=== PATIENT | male | born 1975 | race Hispanic/Latino ===

== ENCOUNTER 2018-05-05 07:05 | Day surgery (SDC) | payer OTHER ==
[2018-05-03 09:39] VITALS: BMI 23.6
[2018-05-05] MEDS ORDERED: Propofol 10 mg/ml Inj (20 ML) ONE (09:58)
[2018-05-05] MEDS ORDERED: Midazolam 2 MG/2 ML VIAL ONE (09:58)
[2018-05-05] MEDS ORDERED: ceFAZolin IV 1 gm in Dextrose 1 GM/50 ML BAG IVPB SCH (10:15)
[2018-05-05] MEDS ORDERED: Neostigmine Methylsulfate 3mg/3ml Syringe IV ONE (11:55)
[2018-05-05] MEDS ORDERED: HYDROmorphone 0.5 mg/0.5 ml ISec ONE (12:20)
[2018-05-05] MEDS ORDERED: HYDROmorphone 0.5 mg/0.5 ml ISec IVP PRN ×2 (12:21→12:23)
[2018-05-05] MEDS ORDERED: Lactated Ringer's 1,000 ML IV SCH (12:30)
[2018-05-05] MEDS ORDERED: Bupivacaine 0.25% 20 ML INJ IJ ONE (12:38)
--- NOTE | 2018-05-05 12:54 | PCM.ANESB7 ---
Adductor Canal Block - Adductor Canal Block Date of Procedure: 05/05/18 Anesthiologist: Morgan Pre-Procedure Diagnosis: Left meniscal tear Post-Procedure Diagnosis: Left meniscal tear Procedure Performed: Adductor Canal Block Left - Procedure Adductor Canal Block: The procedure was explained to the patient that it is for the post-operative pain management. Consent was obtained after a thorough discussion with the patient regarding the benefits and possible complications of local anesthetic adductor canal block of the femoral nerve. Standard monitors, as defined by the ASA, were applied to the patient. Time-out was held with the circulating nurse to confirm the appropriate block. After applying supplemental oxygen and administering IV Sedation as needed, the patient was placed in supine position with and the operative leg was flexed slightly at the knee and externally rotated as needed, and was kept anatomically stable. The mid-thigh of the _left__ lower extremity was exposed. The ultrasound transducer was then applied transversely along the medial aspect, about midway down the thigh and the femoral artery and vein were identified in appropriate relation with the s artorius muscle. At this time, the femoral nerve was visualized lateral to the femoral artery within the canal. After thorough identification, this area area was prepped with Chloroprep solution three times and 1 % Lidocaine was injected subcutaneously for topical anesthesia. At this point, a #22 gauge Stimuplex 4-inch needle was inserted in-plane in a la [id number] orientation, and advanced toward the femoral nerve. Advancement was performed carefully under direct ultrasound visualization. After negative aspiration, _20_cc of __0.25_% ___bupivicaine.. Under ultrasound guidance the local anesthetics were observed spreading around the femoral nerve. The needle was removed intact and sterile dressing was applied. The patient had stable vital signs, was conscious and in no apparent distress. The patient tolerated the femoral nerve block well with stable vital signs and was prepared for subsequent surgery
[2018-05-05 13:49] VITALS: RESP 10; TEMP 97.6; O2SAT 98
[2018-05-05 14:05] VITALS: PULSE 69
[2018-05-05 15:13] VITALS: BP 136/79
--- NOTE | 2018-05-17 07:03 | PCM.SURG1 ---
Surgeon's Initial Post Op Note - Surgeon's Notes Surgeon: Africa Corbin MD [place] Operator: Abundio Woodruff PA-C Type of Anesthesia: General Endo, [facility] Pre-Operative Diagnosis: L knee: #1 medial meniscal tear. #2 partial ACL tear. #3 lateral meniscal tear. #4 MFC chondromalacia Operative Findings: L knee: #1 complex medial meniscal tear (2 zones of injury= posterior horn oblique large tear at the white-red zone, repairable, complex free edge white white zone tear posterior horn, not repairable). #2 complex lateral meniscal tear (3 zones of injury= posterior horn - root junction complex tear, not repairable/ peripheral menisco-capsular seperation, hypermobility, red-red zone injury, repairable, free edge complex white-white zone tear at mid- body, not repairable). #3 high grade partial ACL tear with grade 3 instability (essentially, not functional ACL, but good remnant fibers ammanable to primary ACL repair). 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 #5 chondromalacia MFC (small full thickness grade 4 injury at anterior aspect, [id number]). #6 significant 3 compartment synovitis. #7 symptomatic medial plica band. #8 hypertorphic, inflamed anterior fat pad causing anterior impingement Post-Operative Diagnosis: L knee: #1 complex medial meniscal tear (2 zones of injury= posterior horn oblique large tear at the white-red zone, repairable, complex free edge white white zone tear posterior horn, not repairable). #2 complex lateral meniscal tear (3 zones of injury= posterior horn - root junction complex tear, not repairable/ peripheral menisco-capsular seperation, hypermobility, red-red zone injury, repairable, free edge complex white-white zone tear at mid-body, not repairable). #3 high grade partial ACL tear with grade 3 instability (essentially, not functional ACL, but good remnant fibers ammanable to primary ACL repair). 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 #5 chondromalacia MFC (small full thickness grade 4 injury at anterior aspect, [id number]). #6 significant 3 compartment synovitis. #7 symptomatic medial plica band. #8 hypertorphic, inflamed anterior fat pad causing anterior impingement Operation Performed: L knee Arthroscopic: #1 all inside medial meniscal repair. #2 partial lateral menisectomy with stabilization posterior horn. #3 evaluation of high grade partial ACL tear (possible future primary ACL repair vs recon). #4 chondroplasty patella. #5 chondroplasty and microfracture MFC chondral injury. #6 extensive synovectomy all 3 compartments. #7 resection and debridement symptomatic medial plica band. #8 resection and debridement anterior inflamed hypertorphic fat pad. #9 intra-articular PRP injection Specimen/Specimens Removed: specimen= none. complications= none. tourniquet time= 0min. Implants= [employer] Sequent all inside meniscal repair system, 24 implants used in total, 6 kits, 6 implants for LM stabilization, 18 implants for the MM repair Estimated Blood Loss: EBL {In ML}: 3 Blood Products Given: N/A Drains Used: No Drains Post-Op Condition: Good Date of Surgery/Procedure: 05/05/18 Time of Surgery/Procedure: 10:00
--- NOTE | 2018-05-18 05:08 | OP ---
PROCEDURE DATE: 05/05/2018 PREOPERATIVE DIAGNOSES: Left knee: 1. Medial meniscal tear. 2. Partial anterior cruciate ligament tear. 3. Lateral meniscal tear. 4. Medial femoral condyle, possible chondral injury. POSTOPERATIVE DIAGNOSES: Left knee: 1. Complex medial meniscal tear (two zones of injury = posterior horn oblique large tear at the white-red zone, partially repairable/complex free edge white-white zone tear, midbody to posterior horn not repairable). 2. Complex lateral meniscal tear (three zones of injury = posterior horn-root junction complex tear, not repairable/peripheral meniscal capsular separation, hypermobility, red-red zone injury repairable/free edge complex white-white zone tear at midbody, not repairable). 3. High-grade partial anterior cruciate ligament tear with grade III instability (essentially, nonfunctional anterior cruciate ligament with good remnant fibers amendable primary anterior cruciate ligament repair in the future). 4. Chondromalacia grade II patella, lateral facet. 5. Chondromalacia, medial femoral condyle, grade IV (small full-thickness grade IV injury at the anterior aspect of the medial femoral condyle, measuring 3 mm x 3 mm). 6. Significant three-compartment synovitis. 7. Symptomatic medial plica band. 8. Hypertrophic, inflamed anterior fat pad causing anterior impingement. PROCEDURES: Left knee arthroscopic: 1. All-inside medial meniscal repair. 2. Partial lateral meniscectomy with stabilization of posterior horn. 3. Evaluation of high-grade partial anterior cruciate ligament tear (indicated for possible future primary anterior cruciate ligament repair versus reconstruction if the patient is willing). 4. Chondroplasty of patella. 5. Chondroplasty and microfracture of medial femoral condyle chondral injury. 6. Extensive synovectomy of all three compartments. 7. Resection and debridement of symptomatic medial plica band. 8. Resection and debridement of anterior and inflamed hypertrophic fat pad. 9. Intra-articular platelet-rich plasma injection. SURGEON: Africa Corbin MD BIODIESEL PROCESSING TECHNICIAN: Abundio Woodruff PA-C JUSTIFICATION FOR BIODIESEL PROCESSING TECHNICIAN: Abundio Woodruff is a certified physician assistant plant manager whose skilled surgical assistance was an absolute necessity for successful completion of the procedure as he provided skilled surgical assistance with positioning of the patient, positioning of extremity, management of surgical field, facilitating complex all-inside medial meniscal repair, facilitating microfracture of medial femoral condyle, facilitating partial lateral meniscectomy and extensive synovectomy, wound closure, fitting and placement of postoperative hinged knee brace. Solaus Ranjan was present for the entire case and was an absolute necessity for successful completion of this procedure especially with the complex medial meniscal tear repair that was performed. ANESTHESIA: General endotracheal anesthesia with a postop regional nerve block placed by anesthesia staff in PACU. COMPLICATIONS: None. SPECIMENS: None. TOURNIQUET TIME: Zero minutes. ESTIMATED BLOOD LOSS: 3 mL. DRAINS: None. DISPOSITION: The patient was extubated and transferred to the PACU in stable condition and tolerated the procedure well. IMPLANTS: [facility] all-inside Sequent meniscal repair system, 24 implants used in total/6 kits, 6 implants were used for the lateral meniscus stabilization and 18 implants were used for the all-inside medial meniscal repair. INDICATIONS FOR SURGERY: The patient is a 42-year-old male with no significant past medical history who presented to the office for the first time under my care on 06/06/2017 with left knee pain, progressively worsening over the past five years. 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 His problems began approximately fiver years ago when he ran a half marathon and at the end of the marathon, he started to develop left knee medial and anterior pain that has since then progressively worsened. He admitted to clicking and catching and multiple episodes of giving way with subjective instability. Under my care, he has undergone conservative treatment with bracing, multiple rounds of physical therapy, anti-inflammatory medication in the form of Mobic, anti-inflammatory cream, one cortisone mixture injection under my care in the office on 06/20/2017. The cortisone mixture injection resulted a near-complete resolution of pain that lasted approximately two months. He has been very compliant with all of his conservative treatment recommendations. He underwent an MRI of the left knee done at [facility] on 06/09/2017 which was read as: 1. Complex tear of posterior horn and body of medial meniscus. 2. Grade I sprain of ACL and MCL. 3. Mid patellar chondromalacia, no osteochondral defect. 4. Small joint effusion. After failing conservative management for almost one year, a repeat left knee MRI was done also at [facility] on 03/06/2018 which was read as: 1. Re-demonstration of complex tear, posterior horn and body medial meniscus. 2. Persistent grade I sprain pattern in the ACL and MCL but slightly diminished surrounding edema. 3. Mild patellar chondromalacia again seen, no discrete osteochondral defect. 4. Small joint effusion and small Ortiz cyst. On my review of the first MRI and the repeat MRI, the medial meniscus exhibited significant large oblique tear at the posterior horn with what appeared to be good quality tissue, possibly amendable to repair. The ACL exhibited significant signal change, and my opinion was a high-grade partial tear on both MRIs, worse on the repeat MRI. The lateral meniscus also exhibited a peripheral signal on the repeat MRI. The medial femoral condyle cartilage exhibited a small area of signal change of its anterior aspect as well near the lateral aspect of the medial femoral condyle. On physical exam, he had positive medial meniscal tear findings with positive Beth and medial joint line pain as well as very mild lateral Beth with possible clinical lateral meniscal tear as well. ACL did exhibit significant instability on serial examinations in the office with 2+ anterior joint neutral and internal rotation with a soft endpoint and 3+ anterior drawer waxer external rotation with an endpoint, 2+ Alex with an endpoint and 1 to 2+ pivot shift. MCL appeared stable. After having multiple discussions about treatment options and going over his ACL instability exam and subjective complaints of instability on multiple occasions, he was indicated for surgery which was to include left knee arthroscopic medial meniscal repair versus partial medial meniscectomy, possible partial lateral meniscectomy versus lateral meniscus repair, possible chondroplasty and microfracture of clinically indicated, evaluation of the partial ACL tear under anesthesia and arthroscopically, extensive synovectomy and all related indicated arthroscopic procedures. We discussed at length the benefit of undergoing a primary ACL repair in the same setting if the tissue is of good quality and indeed there was significant ACL instability under anesthesia and arthroscopically it appeared to be avulsed of the femur or attenuated fibers that were nonfunctional. The patient was adamant that he did not want the ACL repair performed during this session and that he would like to review the arthroscopic pictures and video from the surgery and determine if he would like to proceed with ACL repair or reconstruction in the future after he recovers from the surgery. My instructions for the patient were very clear that I was to evaluate the partial ACL tear and show him my findings, and we would discuss the indicated treatment plan moving forward. The risks, benefits, and alternatives to the procedure were discussed at length with the patient with the risks include, but not limited to infection, neurovascular damage, need for further surgery, failure of meniscus repair, development of chronic pain and disability, chondrolysis, development of blood clots including DVT and PE, stiffness, inability to return to preinjury and presurgery level of activity and sports, anesthesia reactions including . After answering all of his questions, the patient stated that he understood the risks and wished to proceed with surgery. He watched surgical animation videos and diagnoses. The animation videos on multiple office visits and stated that he had a good understanding of the procedure as well as the multiple diagnoses. I reviewed at length with him the postop rehabilitation protocol and stated he had a good understanding of the need for compliance with the postop rehab protocol in order to maximize the chance of having successful outcome after surgery. He was referred to his primary care physician, Dr. Zan White, for preoperative medical evaluation and preadmission testing, and the procedure was scheduled at [facility] on 05/05/2018. PROCEDURE IN DETAIL: The patient was identified in the preoperative holding area, and the left knee was marked for surgery. Once again as described above, the risks, benefits, and alternatives of the procedure were discussed at length with the patient, and informed consent was obtained. After a brief discussion with anesthesia staff, the patient was taken to the operating room and placed on a well-padded operating room table with all bony prominences and superficial neurovascular structures well padded. An initial time-out was done with the surgeon, anesthesia staff, OR staff; all in agreement with the patient, procedure being done and the extremity to be operated on. General anesthesia was administered without difficulty or complications. EXAMINATION UNDER ANESTHESIA: Left knee with no swelling, no warmth, no erythema, skin intact, full range of motion compared to contralateral knee. There was significant ACL instability under anesthesia with 3+ anterior drawer and internal rotation, external rotation, neutral with a very soft endpoint, 3+ Alex with no endpoint, 3+ pivot shift, negative reverse Alex, negative posterior drawer, negative reverse pivot shift, negative opening to medial or lateral joint line at 0 or 30 degrees varus or valgus stress, negative posterolateral corner drawer test, negative dial test, negative recurvatum. Patella with no evidence of instability and normal tracking with no crepitance. There was a reproducible click at the inferior medial aspect of the patella engaging at 30 degrees flexion representing a symptomatic medial plica band most likely. CONTINUATION OF PROCEDURE: Tourniquet was placed high in left thigh, but never inflated. Left lower extremity was prepped and draped in a standard sterile fashion. A final time-out was done with the surgeon, anesthesia staff, OR staff, all in agreement with the patient, procedure being done and the extremity to be operated on. Normal saline 50 mL was used to insufflate the left knee joint. Anterolateral portal was created with stab incision through the skin down to subcutaneous tissue down to the level of the capsule. Blunt arthroscopic trocar and cannula were inserted into the suprapatellar pouch, and insufflation with arthroscopic fluid was begun. With the use of spinal needle localization after the camera was inserted, we were able to identify optimal entry point for the anteromedial portal, and the anteromedial portal was created with stab incision through skin down to subcutaneous tissue down to the level of the capsule. With the use of an arthroscopic probe, a diagnostic arthroscopy was then carried out. DIAGNOSTIC ARTHROSCOPY: Attention was first turned towards the suprapatellar pouch where there was no evidence of adhesions or loose bodies. Attention was then turned towards the patellofemoral joint where the lateral patella exhibited grade II chondromalacia throughout with no full-thickness defect seen and just some fibrillation and unstable cartilage fragments. Trochlea was intact. Patella was well seated within the trochlea with no evidence of instability or subluxation. Extending from the inferomedial aspect of the patella to the medial retinaculum was a thickened hypertrophic symptomatic medial plica band causing friction with the medial femoral condyle, appearing as a symptomatic medial plica band. Attention was then turned towards the medial gutter where as stated before, there was a thickened medial plica band that was symptomatic with no other evidence of loose body or pathology. Attention was then turned towards the medial compartment where immediately seen was complex tearing of the midbody to posterior horn of the medial meniscus with two zones of injury. With the use of the arthroscopic probe, the medial meniscus was carefully evaluated. The two zones of injury of the medial meniscus where the large oblique posterior horn tear at the white-red zone starting at the posterior midbody extending into the posterior horn. There was a good quality meniscal tissue at this area, and a future meniscal repair would be carried out. The second zone of injury to the medial meniscus was a complex free edge white-white zone tear at the midbody and posterior horn that was not repairable. The medial tibial plateau exhibited intact cartilage with no evidence of injury, the medial femoral condyle exhibited intact cartilage throughout with the exception of one small zone of grade IV full-thickness injury at its anterolateral aspect measuring 3 mm x 3 mm. Attention was then turned towards the intercondylar notch where immediately seen was an intact PCL and a high-grade partial tear of the ACL, not just of the bundles avulsing from the femur but also longitudinal tears within the bundle. Nevertheless, the ACL tissue appeared to be of good quality and amendable possibly for a primary repair of the ACL. The posterolateral bundle and anteromedial bundle fibers were completely detached from the lateral femoral condyle insertion and were scarred down to the PCL and posterior capsule, essentially a complete tear that was scarred down with remnant fibers maintained and scarred into the PCL and posterior capsule. The fibers were also attenuated and stretched out. Essentially, this was a nonfunctioning ACL with complete grade III instability resulting. There is no doubt in my mind that he would benefit from a primary ACL repair at the very least and if the quality of the ACL tissue is not amendable to holding the suture under tension, then an ACL reconstruction should be done to preserve his knee. Attention was then turned towards the lateral compartment where a complex lateral meniscal tear was seen with three zones of injury. The first zone of injury was at the posterior horn-posterior root junction with a complex tear starting at the white-white zone extending into the white-red zone that was not amendable to repair at all with fibrillated and friable meniscal tissue at the superior aspect tear. The second zone of injury was a peripheral meniscal capsular separation resulting significant hypermobility at this red-red zone injury that was repairable/amendable to stabilization. The third zone of injury was a free edge complex white-white zone tear at the midbody that was not repairable. The lateral femoral condyle and lateral tibial plateau exhibited intact cartilage with no evidence of injury. Throughout its course of doing the diagnostic scope, it was noted that in all three compartments, there was hypertrophic inflamed synovium with significant induration. The anterior infrapatellar fat pad was also hypertrophic and inflamed causing anterior impingement and patellofemoral impingement as well. CONTINUATION OF PROCEDURE: Arthroscopic all-inside medial meniscus repair: With the use of arthroscopic shaver and radiofrequency ablation as well as meniscal biters, the partial medial meniscectomy was carried out removing the unstable fragments of medial meniscus tearing at the complex free edge white-white zone tear of the posterior horn that was not of good quality tissue and not amendable to repair. With the use of the arthroscopic probe, this large oblique tear was carefully evaluated and was found to be full thickness from the superior surface to the inferior surface of the posterior horn medial meniscus. Decision was made to proceed with attempt at medial meniscus repair as the patient was very adamant about his wishes to have the meniscus repaired and not resected. Performing a partial medial meniscectomy in the setting would result with resection of greater than 40% of the medial meniscus overall, and therefore an attempt at this complex medial meniscal repair was carried out. With the use of the [email or web address] all-inside Sequent meniscal repair system, four implants were used initially at the inferior aspect of the oblique tear, starting at the central fibers extending to the peripheral fibers with good capsular-sided fixation achieved and three resulting vertical mattress sutures starting from anterior to posterior stabilizing the large oblique tear. This was then repeated with placements of another four implants inferiorly from anterior to posterior and placement of four implants at the superior aspect with supplemental four more implants at the superior aspect, and finally seven implants were placed in a crisscross configuration starting from posterior to anterior stabilizing and repairing the posterior horn medial meniscus with good fixation achieved. Once the all-inside medial meniscal repair was carried out to satisfaction, attention was then turned towards lateral meniscus treatment. ARTHROSCOPIC PARTIAL LATERAL MENISCECTOMY: With the use of arthroscopic shaver, radiofrequency ablation arthroscopic meniscal biters, the partial lateral meniscectomy was carried out establishing a smooth rim debriding the free edge complex white-white zone tear establishing a smooth rim and resecting approximately 5% overall of the lateral meniscus. Attention was then turned towards the posterior root/posterior horn junction complex tearing and with the use of arthroscopic shaver and radiofrequency ablation, the partial lateral meniscectomy was carried out at this point smoothing out the fibrillated and complex tearing tissue establishing a smooth contour. All in all, approximately less than 10% of the lateral meniscus was removed overall. With the use of the arthroscopic probe, the peripheral red-red zone injury/meniscal capsular separation was carefully evaluated. The peripheral tear was anterior to the level of the popliteal hiatus and was resulting in significant hypermobility of the lateral meniscus. With the use of the [employer] all-inside meniscal repair system, a lateral meniscus stabilization was carried out with placement of six implants, three at the superior aspect and three at the inferior aspect of the peripheral lateral meniscus tear providing good stability and negating the hypermobility that was witnessed prior to the repair. Prior to the repair, the lateral meniscus posterior horn could be subluxed beyond midpoint of lateral femoral condyle. Once the stabilization was completed to satisfaction, the lateral meniscus posterior horn exhibited normal biomechanical physiologic movement. ARTHROSCOPIC CHONDROPLASTY OF PATELLA: With the use of arthroscopic shaver and radiofrequency ablation, the chondroplasty of the patellar grade II chondromalacia lateral facet was carried out successfully. A smooth contour to the chondral surface was established and again after careful evaluation, it was deemed that there was no full-thickness cartilage defect at the patella. CHONDROPLASTY AND MICROFRACTURE OF MEDIAL FEMORAL CONDYLE FULL-THICKNESS CHONDRAL INJURY: With the use of radiofrequency ablation and arthroscopic shaver, a chondroplasty of the medial femoral condyle zone of cartilage injury was carried out establishing a smooth contour. An arthroscopic curette was used to establish a peripheral stable rim of cartilage. Microfracture awls were then placed creating microfracture holes, two in total with good bloody return established and successful microfracture carried out at this 3 mm x 3 mm full-thickness cartilage defect of the anterior aspect/lateral aspect of the medial femoral condyle. ARTHROSCOPIC EXTENSIVE SYNOVECTOMY: An extensive synovectomy was carried out beyond what was considered usual and customary for better visualization during arthroscopic procedures of the knee. This involved extended surgical time to perform a three-compartment extensive synovectomy while maintaining good hemostasis. Resection and debridement of the symptomatic medial plica band causing friction with the medial femoral condyle. Resection and debridement of the hypertrophic and inflamed anterior infrapatellar fat pad causing anterior impingement at the tibiofemoral joint as well as the patellofemoral joint. Due to the amount of pathology treated under the category of extensive synovectomy, an amount of surgical time dedicated to this portion of the procedure, the extensive synovectomy will be treated as an independent portion of the procedure warranting its own category and coding and billing. Once the extensive synovectomy was carried out to satisfaction, final arthroscopic imaging was taken of the partial ACL tear and attenuated detached fibers of the posterolateral and anteromedial bundles of the ACL, all-inside medial meniscal repair, partial lateral meniscectomy and stabilization, microfracture of medial femoral condyle, chondroplasty of patella and extensive synovectomy, all three compartments including resection plica band and resection and debridement of anterior fat pad. Arthroscopic fluid and debris were then removed from the knee joint. ARTHROSCOPIC INTRA-ARTICULAR PRP INJECTION: With the help of anesthesia staff, a peripheral venous stick was carried out, and the venous blood was spun in the Arthrex Centrifuge yielding 10 mL of PRP. Under direct arthroscopic visualization, the 10 mL of PRP was injected intra-articular in its entirety. The arthroscopic portals were then reapproximated with two plain 0 Vicryl suture for deep tissue followed by three plain 0 Monocryl suture for skin. Sterile dressings were applied followed by a layer of sterile cast padding from the toes up to the superior thigh followed by layer of compressive Mesfin wrap from the toes up to the superior thigh. The knee was then fitted and placed in a postop hinged knee brace provided by my office. The brace was placed at the medical necessity to provide a stable environment for the patient to be weightbearing as tolerated and protecting the meniscus repair at the same time, especially in the setting of an unstable grade III ACL injury. The patient was extubated and transferred to PACU in stable condition and tolerated the procedure well. JUSTIFICATION FOR BILLING AND CODIN. All-inside medial meniscal repair was carried out successfully and therefore was coded and billed as CPT 30059. 2. Arthroscopic partial lateral meniscectomy was carried out successfully with a concomitant stabilization of the hypermobility secondary to the partial lateral meniscectomy and therefore was coded and billed as partial lateral meniscectomy as CPT 92911. 3. Chondroplasty and microfracture of the medial femoral condyle was carried out successfully and therefore was coded and billed as CPT 68678. 4. Chondroplasty of the patella was carried out successfully but is considered inclusive to the chondroplasty and microfracture code and therefore was not coded and billed. 5. An extensive synovectomy was carried out beyond what was considered usual and customary to establish better visualization during arthroscopic surgery of the knee with extended surgical time required to perform a three-compartment synovectomy, resection and debridement of the symptomatic medial plica band, resection and debridement of the hypertrophic anterior fat pad causing anterior impingement. Therefore as a separate part of the procedure, extensive synovectomy was coded and billed as CPT 26874. 6. Intra-articular PRP injection was performed successfully at the end of the procedure and therefore was coded and billed as CPT 0232T. 7. A postop hinged knee brace was fitted and placed on the patient at the end of the procedure, locked at 0 degrees extension provided by my office and therefore was coded and billed as part of the surgery day of service as DME code of [id number]. The postop hinged knee brace is of medical necessity to protect the medial meniscus repair and lateral meniscus stabilization especially in the setting of a grade III ACL instability to maximize the chances of successful healing for this active young patient. DISPOSITION: The patient was extubated and transferred to the PACU in stable condition and will be discharged home once he is recovered from anesthesia. He is instructed to be weightbearing as tolerated to the left lower extremity with the postop hinged knee brace, locked at 0 degrees extension at all times when ambulating. When he is lying down and not ambulating, he can unlock the brace and work on gentle progressive range of motion. He will start physical therapy as soon as possible. He will follow up in my office at [facility] within one week and already has his postoperative appointment setup. He has been given prescriptions for Percocet for pain control. He has been given the prescription for Lovenox 40 mg subcutaneous injection once daily to start postoperative day #1 as DVT prophylaxis for two weeks. He will contact me directly with any questions or concerns. Africa Corbin MD
== END 2018-05-05 15:14 | disposition home or self-care (01) ==
LOC: C.SDS 07:05
PROVIDERS: ATTEND Student in an Organized Health Care Education/Training Program
DX: S83.232D Complex tear of medial meniscus, current injury, left knee, subsequent encounter (principal); S83.272D Complex tear of lateral meniscus, current injury, left knee, subsequent encounter; M94.262 Chondromalacia, left knee; M67.862 Other specified disorders of synovium, left knee; S83.512D Sprain of anterior cruciate ligament of left knee, subsequent encounter
CPT/HCPCS: 29881; 29882; 97116; 97162; C1751; C1776; G8978; G8979; G8980; J0171; J0690; J1885; J2250; J2405; J2704; J2710; J3010